=== PATIENT | male | born 1995 ===

== ENCOUNTER 2022-03-15 14:59 | Outpatient (CLI) | payer BC, SELFPAY ==
[2022-03-15 15:11] LABS: Hematocrit 48.1 % (40.0-54.0); Hemoglobin 16.9 g/dL (14.0-18.0); Mean Corpuscular HGB Conc 35.1 g/dL (32.0-36.0); Mean Corpuscular Hemoglobin 30.5 pg (27.0-31.0); Mean Corpuscular Volume 86.7 fL (78.0-102.0); Platelet Count Result 223 K/mm3 (150-420); Red Blood Count 5.55 M/mm3 (4.70-6.10); Red Cell Distribution Width 12.2 % (11.6-14.4)
[2022-03-15 15:31] LABS: Alanine Aminotransferase 24 U/L (16-63); Albumin Level 4.7 g/dL (3.4-5.0); Alkaline Phosphatase 72 U/L (46-116); Anion Gap 9 mmol/L (8-16); Aspartate Amino Transferase 12 U/L (15-37); Bilirubin,Total 0.8 mg/dL (0.00-1.00); Blood Urea Nitrogen 18 mg/dL (7-18); Calcium 9.5 mg/dL (8.5-10.1); Carbon Dioxide 28 mmol/L (21-32); Chloride 103 mmol/L (98-108); Estimated Glomerular Filt Rate > 60; Glucose 78 mg/dL (70-99); Osmolality Calculated 290 mOsm/kg (285-295); Potassium 4.2 mmol/L (3.5-5.1); Sodium 140 mmol/L (136-145); Total Protein 8.2 g/dL (6.4-8.2)
== END 2022-03-15 15:00 | disposition home or self-care (01) ==
LOC: CHSLAB 15:01
PROVIDERS: PCP Family Medicine; Visit Provider Family Medicine
DX: E83.31 Familial hypophosphatemia (principal)
CPT/HCPCS: 36415; 80053; 85027